=== PATIENT | female | born 1940 | race Caucasian/White ===

== ENCOUNTER → 2017-10-22 | Day surgery (SDC) | payer OTHER, MEDICARE ==
[~2017-10-22] VITALS: Ht 152.4 cm; Wt 61.2 kg
--- NOTE | 2017-10-22 08:45 | Operative Report ---
Operative/Inv Procedure Report Surgery Date: 10/22/17 Name of Procedure: Tonsillectomy Pre-Operative Diagnosis: Tonsillar lesion, left tonsil Tonsillar hypertrophy Chronic tonsillitis Post-Operative Diagnosis: Same Estimated Blood Loss: scant Surgeon/Facilities Maintenance Manager: Madhavi Carrero MD Anesthesia: general endotracheal tube Specimens: 1. right tonsil 2. Left tonsil Microbiology: Non- Complications: Non- Condition: Stable on leaving the OR Operative Indication: Patient underwent a PET scan which show an SUV uptake of the left tonsil Patient has a long lesion She now presents for tonsillectomy to rule out lesion within left tonsil Operative/Procedure Note Note: Patient was brought to the operating room. Placed on the operating table in supine position. First timeout was performed including patient's name, ID number and planned procedure. Then general orotracheal anesthesia was induced. Endotracheal tube was taped in the midline. Oral cavity was exposed with oral cavity retractor, endotracheal tube positioned in the midline over the tongue. Soft palate was palpated. There was no submucous cleft. Nasopharynx was visualized with a mirror. There was no evidence of adenoid hypertrophy. Right tonsil was grasped with curved Allis, incision was placed over the anterior superior pole of the mucosa only. Tonsil capsule was identified and dissection was carried from superior to inferior until the entire tonsil was removed. Next the left tonsil was grasped with curved Allis. Incision was placed with the Bovie over the anterior-superior pole through the mucosa only. Tonsillar capsule was identified and dissection carried from the superior to the inferior until the entire tonsil was removed. Dissection was carried with a Bovie, pencil-tip with foot control set on cut of 5 and coag of 15. At the end of the procedure tonsillar fossa was inspected for bleeders. Additional cautery was carried to assure adequate hemostasis. During dissection both tonsils were markedly scarred down and fibrosed. There were very friable and had a great deal of crypts and concretions. Surgery was completed. Stomach was suctioned with an OG tube. The patient was reawakened, extubated and taken to the recovery room in good condition. There were no complications. Estimated blood loss was minimal. Findings: Right tonsil- shown crepitus, concretions Left tonsil-crypts and concretions, firm and nodular on palpation Discharge Disposition: PACU
== END ==
LOC: STS 02:16
DX: J35.01 Chronic tonsillitis (principal); I10 Essential (primary) hypertension; J44.9 Chronic obstructive pulmonary disease, unspecified; R91.1 Solitary pulmonary nodule; Z87.891 Personal history of nicotine dependence; I47.1 Supraventricular tachycardia
CPT/HCPCS: J0690; J1100; J2250; J2405